=== PATIENT | female | born 1975 | race Caucasian/White ===

== ENCOUNTER → 2021-04-19 | Emergency (ER) | payer OTHER ==
[~2021-04-19] MED LIST: IBUPROFEN800 MG PO; OMEPRAZOLE40 MG PO; ZPAK PO
== END | disposition home or self-care (01) ==
LOC: FER 09:08
DX: K61.1 Rectal abscess (principal); F17.210 Nicotine dependence, cigarettes, uncomplicated; Z88.5 Allergy status to narcotic agent
CPT/HCPCS: 87070; 87077; 87186; 87205

== ENCOUNTER 2022-03-27 02:56 | Emergency (ER) | payer OTHER | END 2022-03-27 06:25 | disposition home or self-care (01) | LOC: FER 02:56 | DX: R51.9 Headache, unspecified (principal); R11.0 Nausea; F17.200 Nicotine dependence, unspecified, uncomplicated; I11.0 Hypertensive heart disease with heart failure; I50.9 Heart failure, unspecified; J44.9 Chronic obstructive pulmonary disease, unspecified; Z88.5 Allergy status to narcotic agent; Z88.8 Allergy status to other drugs, medicaments and biological substances | CPT/HCPCS: 70450; J1885 ==